=== PATIENT | female | born 1950 | race Caucasian/White ===

== ENCOUNTER 2024-05-18 10:41 | Observation (INO) ==
--- NOTE | 2024-04-07 15:59 | PAT Medication Instructions ---
Medication Instructions Date of Service April 07, 2024 Home Medications gabapentin 300 mg capsule 300 mg PO BID hydrochlorothiazide 12.5 mg capsule 12.5 mg PO QAM lisinopril 40 mg tablet 40 mg PO QAM amitriptyline 25 mg tablet 25 mg PO HS cholecalciferol (vitamin D3) 25 mcg (1,000 unit) capsule (Vitamin D3) 25 mcg PO DAILY glucosamine-chondroitin 250 mg-200 mg tablet (Osteo Bi-Flex) 1 tab PO DAILY meloxicam 7.5 mg tablet 7.5 mg PO BID omeprazole 20 mg capsule,delayed release 20 mg PO QAM rosuvastatin 40 mg tablet 40 mg PO HS vitamin E 2 cap PO DAILY ASK your surgeon for instructions meloxicam 7.5 mg tablet 7.5 mg PO BID STOP taking 2 weeks before surgery (or as soon as possible if surgery is within 2 weeks) glucosamine-chondroitin 250 mg-200 mg tablet (Osteo Bi-Flex) 1 tab PO DAILY vitamin E 2 cap PO DAILY DO NOT take the morning of surgery hydrochlorothiazide 12.5 mg capsule 12.5 mg PO QAM lisinopril 40 mg tablet 40 mg PO QAM cholecalciferol (vitamin D3) 25 mcg (1,000 unit) capsule (Vitamin D3) 25 mcg PO DAILY Take morning of surgery With a small sip of water, OTHERWISE NOTHING TO EAT OR DRINK AFTER MIDNIGHT: gabapentin 300 mg capsule 300 mg PO BID omeprazole 20 mg capsule,delayed release 20 mg PO QAM Take evening before surgery gabapentin 300 mg capsule 300 mg PO BID amitriptyline 25 mg tablet 25 mg PO HS rosuvastatin 40 mg tablet 40 mg PO HS Other Notes If you have any questions please call us at [phone] or [phone] or [phone] or [phone]
--- NOTE | 2024-04-17 09:26 | Anesthesiology Consultation ---
Date of Service April 17, 2024 Assessment & Plan (1) Encounter for pre-operative examination: Plan - awaiting surgeon ordered medical clearance, [facility] 04/24/24. Chart Review Chart Review: Pending: Refer to Additional Notes / Consult section and Patient seen in Pre Admission Testing Teaching & Discussion Pre-Anesthesia Teaching/Discussion Notes: Instructed NPO after midnight before surgery, except medications with 15 cc of water. Medication instructions provided according to the PAT guidelines. History Surgery Operation Date: 05/18/24 10:05 Proposed Procedures p Right Reverse Total Shoulder Arthroplasty, Biceps Tenodesis - Sp Hodges MD Height/Weight Height: 5 ft 2 in Weight: 93.7 kg Allergies Allergy/AdvReac Type Severity Reaction Status Date / Time cephalexin Allergy Intermediate Rash, Hives Verified 04/07/24 11:14 erythromycin base Allergy Intermediate Rash, Hives Verified 04/07/24 11:14 Penicillins Allergy Intermediate Rash, Hives Verified 04/07/24 11:14 Medications Home Medications Medication Instructions Recorded Confirmed Last Taken gabapentin 300 mg capsule 300 mg PO BID 06/29/19 04/07/24 Unknown hydrochlorothiazide 12.5 mg capsule 12.5 mg PO QAM 06/29/19 04/07/24 06/29/19 12.5 lisinopril 40 mg tablet 40 mg PO QAM 06/29/19 04/07/24 06/29/19 amitriptyline 25 mg tablet 25 mg PO HS 04/07/24 04/07/24 Unknown cholecalciferol (vitamin D3) 25 25 mcg PO DAILY 04/07/24 04/07/24 Unknown mcg (1,000 unit) capsule (Vitamin D3) glucosamine-chondroitin 250 mg-200 1 tab PO DAILY 04/07/24 04/07/24 Unknown mg tablet (Osteo Bi-Flex) meloxicam 7.5 mg tablet 7.5 mg PO BID 04/07/24 04/07/24 Unknown omeprazole 20 mg capsule,delayed 20 mg PO QAM 04/07/24 04/07/24 Unknown release rosuvastatin 40 mg tablet 40 mg PO HS 04/07/24 04/07/24 Unknown vitamin E 2 cap PO DAILY 04/07/24 04/07/24 Unknown Past Medical History Medical History (Updated 04/17/24 @ 09:39 by Brittany Stanley PA-C) Heart burn controlled, stable per pt History of kidney stones last episode 8-9 yrs ago HTN (hypertension) controlled, stable per pt Osteoarthritis PONV (postoperative nausea and vomiting) does well with IV pre-dosing Patient denies h/o stroke, seizures, heart attack, heart failure, DM, blood clots/DVTs or blood transfusions. Exercise / Class Metabolic Activity II 4-5 Yardwork/Stairs/Walk up hill (denies chest discomfort or shortness of breath with one flight of stairs) Past Family History Family History Father Myocardial infarction Arthritis Mother Arthritis Past Surgical History Surgical History (Updated 04/17/24 @ 09:40 by Brittany Stanley PA-C) H/O: hysterectomy History of lumbar surgery x2 Srinivas/Rachel; 06/30/1920 Grade 2 view, [place] 2. History of sacrocolpopexy (~2016) [place] History of tonsillectomy Hx of appendectomy Hx of colonoscopy Hx of lithotripsy Past Anesthesia History No Hx of Anesthesia Complications and No Family Hx of Anesthesia Complications History of PONV No Hx of Motion Sickness and History of PONV (denies needing scop patch) Social History Smoking Status: Never smoker Do You Dip or Chew Tobacco: No Hx Alcohol Use: No Hx Substance Use: No substance use type: does not use Review of Systems Patient denies chest pain, shortness of breath, dyspnea on exertion, snoring, witnessed apneas, fever, chills, cough, wheezing, or palpitations. Physical Exam Vital Signs Vitals BP 141/89 P 78 TEMP 97.7 SP02 96% on RA RESP 18 Physical Patient resting comfortably in chair in no acute distress, alert and oriented, responding appropriately throughout visit Full cervical extension range of motion without pain TMD 3.5 finger breadths Mallampati Score 2 Dentition: intact, denies chipped or loose teeth, caps/crowns, implants or bridges Lungs: normal respiratory effort. Good air movement, clear throughout to auscultation, no adventitious breath sounds Cardiac: regular rate and rhythm, no murmurs noted Carotid arteries: negative bruit bilat Lab Results Anesthesia Preop Results Results Anesthesia Widget: WBC 5.24 K/ul (4.8-10.8) 04/17/24 Hgb 13.6 g/dl (12.0-16.0) 04/17/24 Hct 41.8 % (37.0-47.0) 04/17/24 Plt 190 K/uL (130-400) 04/17/24 Na 139 mmol/L (136-145) 04/17/24 K 4.1 mmol/L (3.5-5.1) 04/17/24 Cl 105 mmol/L (98-107) 04/17/24 CO2 31 mmol/L (21-32) 04/17/24 BUN 26 mg/dl (6-23) H 04/17/24 Creat 0.81 mg/dl (0.6-1.2) 04/17/24 Glucose Level 92 mg/dl (70-99(Fasting)) 04/17/24 PT 10.9 Seconds (9.0-12.0) 04/17/24 PTT 24 Seconds (21-31) 04/17/24 INR 1.0 (0.9-1.1) 04/17/24 Blood Type AB Positive 04/17/24 Antibody Screen NEGATIVE 04/17/24 Testing Electrocardiogram Date: 04/17/24 NSR, rate 66 bpm Chest X-Ray Date: 04/17/24 No significant abnormality detected.
[~2024-05-18 10:41] MED LIST: ALLERGY Noted to ORDERED Medication SCH; BUPIVACAINE 0.5 % 5 MG/1 ML PF 10ML VIAL ONE
[2024-05-18] MEDS: LR 15ML/HR IV SCH (11:35)
[2024-05-18] MEDS: LR 60ML/HR IV SCH (11:35)
[2024-05-18] MEDS: ACETAMINOPHEN 500 MG TAB PO SCH ×2 (11:37→21:30)
[2024-05-18] MEDS ORDERED: ROCURONIUM BROMIDE 10 MG/ML 5 ML VIAL IV ONE (13:21)
[2024-05-18] MEDS ORDERED: PROPOFOL IV EMULSION 10 MG/ML 20 ML VIAL IV ONE (13:21)
[2024-05-18] MEDS ORDERED: LIDOCAINE 2% 2 ML VIAL/AMP(20MG/ML) INFIL ONE (13:21)
[2024-05-18] MEDS ORDERED: MIDAZOLAM HCL 1 MG/ML 2ML VIAL ONE (13:22)
[2024-05-18] MEDS ORDERED: fentaNYL citrate PF 100 MCG/2 ML VIAL ONE ×2 (13:22→16:18)
[2024-05-18] MEDS ORDERED: ONDANSETRON INJ 2 MG/ML 2 ML VIAL ONE (13:27)
--- NOTE | 2024-05-18 13:38 | History & Physical Report ---
Date of Service May 18, 2024 Assessment & Plan (1) Osteoarthritis, shoulder: (2) Biceps tendinitis of right shoulder: Plan The plan for the surgery, inpatient stay, required rehabilitation, and informed consent were all reviewed with the patient and her today in the [facility] holding area. She wants to proceed. Informed consent was reviewed and confirmed to proceed with RIGHT REVERSE SHOULDER ARTHROPLASTY, BICEPS TENODESIS History of Present Illness Chief Complaint: Right shoulder pain Primary Care Provider: Ba Pan PA-C 73-year-old female in reasonably good health presents today with no change in her health history and a desire to proceed with the plan that we developed on March 24, 2024 to replace her right shoulder. Allergies Allergy/AdvReac Type Severity Reaction Status Date / Time cephalexin Allergy Intermediate Rash, Hives Verified 05/18/24 11:14 erythromycin base Allergy Intermediate Rash, Hives Verified 05/18/24 11:14 Penicillins Allergy Intermediate Rash, Hives Verified 05/18/24 11:14 Home Medications Medication Instructions Recorded Confirmed Type gabapentin 300 mg capsule 300 mg PO BID 06/29/19 05/18/24 History hydrochlorothiazide 12.5 mg capsule 12.5 mg PO QAM 06/29/19 05/18/24 History lisinopril 40 mg tablet 40 mg PO QAM 06/29/19 05/18/24 History amitriptyline 25 mg tablet 25 mg PO HS 04/07/24 05/18/24 History cholecalciferol (vitamin D3) 25 25 mcg PO DAILY 04/07/24 05/18/24 History mcg (1,000 unit) capsule (Vitamin D3) glucosamine-chondroitin 250 mg-200 1 tab PO DAILY 04/07/24 05/18/24 History mg tablet (Osteo Bi-Flex) meloxicam 7.5 mg tablet 7.5 mg PO BID 04/07/24 05/18/24 History omeprazole 20 mg capsule,delayed 20 mg PO QAM 04/07/24 05/18/24 History release rosuvastatin 40 mg tablet 40 mg PO HS 04/07/24 05/18/24 History vitamin E 2 cap PO DAILY 04/07/24 05/18/24 History Past Med/Surg History Problem List (Updated 05/18/24 @ 13:37 by Sp Hodges MD) Biceps tendinitis of right shoulder Osteoarthritis, shoulder Decreased right shoulder range of motion Encounter for pre-operative examination Lumbar disc herniation with radiculopathy Low back pain Medical History PONV (postoperative nausea and vomiting) does well with IV pre-dosing History of kidney stones last episode 8-9 yrs ago Heart burn controlled, stable per pt HTN (hypertension) controlled, stable per pt Osteoarthritis Surgical History Hx of lithotripsy History of sacrocolpopexy (~2017) [place] Hx of appendectomy Hx of colonoscopy History of lumbar surgery x2 Srinivas/Rachel; 06/30/1920 Grade 2 view, [place] 2. H/O: hysterectomy History of tonsillectomy Family History Father Myocardial infarction Arthritis Mother Arthritis Social History Smoking Status: Never smoker Second Hand Exposure: No; Do You Dip or Chew Tobacco: No; Tobacco Cessation Education Requested by Patient: No Hx Alcohol Use: No Hx Substance Use: No Preferred Language: Greek Communication Ability: Effective [employer] Required: No Beliefs That Will Affect Care: None marital status: Current Living Situation: Spouse Other Information That Helps Us Care for You: No Feels Safe at Home: Yes Safety Concerns: Feels Safe At This Time Assistive Devices: Glasses Review of Systems All systems reviewed & are unremarkable except as noted in HPI & below. Physical Exam Right shoulder: No change to the exam. No skin compromise. DNVI Constitutional WD/WN, vitals as above no acute distress and not intoxicated appearing Respiratory normal respiratory effort; no labored breathing Cardiovascular Extremities: normal capillary refill Results & Data Results & Data Laboratory Results . Diagnostic Findings . PG Care Time/CCT Total # of Minutes Spent Total Time Spent with Patient: Total time spent is greater than 50% in coordination of care (as documented) at patient's floor/unit and/or counseling patient: Coding Level of Care Code None Diagnoses Primary osteoarthritis of right shoulder M19.011 Osteoarthritis type: primary Laterality: right Biceps tendinitis of right shoulder M75.21 (1) Osteoarthritis, shoulder Osteoarthritis type: primary Laterality: right Qualified Code(s): M19.011 - Primary osteoarthritis, right shoulder
[2024-05-18] MEDS ORDERED: Nursing to Pharmacy Communication SCH (13:45)
[2024-05-18] MEDS: TRANEXAMIC ACID / 0.7% NACL 1,000 MG/100 ML BAG IV ONE (13:55)
[2024-05-18] MEDS: ceFAZolin 2000MG 2,000 MG/15 ML SYR IV SCH ×2 (14:30→22:22)
[2024-05-18] MEDS ORDERED: PHENYLEPHRINE 100MCG/ML 5ML SYR ONE (15:37)
[2024-05-18] MEDS ORDERED: ePHEDrine sulfate 50 MG/ML AMP ONE (15:37)
[2024-05-18] MEDS ORDERED: PHENYLEPHRINE HCL 10 MG/ML VIAL ONE (15:45)
[2024-05-18] MEDS ORDERED: GLYCOPYRROLATE 0.2 MG/ML VIAL ONE (16:37)
[2024-05-18] MEDS ORDERED: NEOSTIGMINE METHYLSULFATE 1 MG/ML 10ML VIAL ONE (16:37)
[2024-05-18] MEDS: BUPIVACAINE LIPOSOME 1.3% 133 MG/10 ML VIAL ONE (16:54)
[2024-05-18] MEDS ORDERED: NALOXONE HCL 0.4 MG/1 ML VIAL/CARP IV PRN (16:59)
[2024-05-18] MEDS ORDERED: HYDROmorphone INJ 0.5 MG/0.5 ML SYR IV PRN (16:59)
[2024-05-18] MEDS ORDERED: HYDROmorphone INJ 1 MG/ML SYRINGE IV PRN (16:59)
[2024-05-18] MEDS ORDERED: diphenhydrAMINE 50 MG/ML VIAL IV PRN (16:59)
[2024-05-18] MEDS ORDERED: MAGNESIUM HYDROXIDE SUSP 30 ML UDC PO PRN (16:59)
[2024-05-18] MEDS ORDERED: bisacodyL 10 MG SUPP PR PRN (16:59)
[2024-05-18] MEDS ORDERED: oxyCODONE HCL IR 5 MG TAB (IMMEDIATE RELEASE) PO PRN (16:59)
--- NOTE | 2024-05-18 17:06 | Operative Report ---
PG Post Operative Report Pre & Post Diagnosis Operation Date: 05/18/24 12:50 Pre-Op Diagnosis: Right Shoulder Osteoarthritis Post-Op Diagnosis: Right Shoulder Osteoarthritis I identified the patient and participated in the time-out.: Yes Procedure Operation Date: 05/18/24 12:50 Actual Procedures p Right Reverse Total Shoulder Arthroplasty, Biceps Tenodesis(Right) - Sp Hodges MD Surgeon Sp Hodges MD Tool Crib Supervisor Ena Ram PA-C Estimated Blood Loss 150 Findings See Below Arthrex Univers Reverse Shoulder Arthroplasty was performed: Iron Stemsize 11, humeral insert small 36+6, 36 mm neutral suture cup, 36+6 spacer, 24 mm 20 degree full standard augment baseplate, 20 mm modular post, 36+4/24 modular glenoid system glenosphere, Univers peripheral locking screw 5.5 mm x 20 and 32 and 24 mm EXAMINATION UNDER ANESTHESIA: Preoperative exam under anesthesia revealed the followin degrees of forward flexion, 30 degrees external rotation at the side, 90 degrees of abduction, 30 degrees of external rotation and 10 degrees of internal rotation with the arm abducted. Postoperatively, range of motion parameters after implantation of prosthesis revealed a stable prosthesis with range of motion parameters as follows: 130 of forward flexion, 60 of external rotation at the side, 120 of abduction, 90 of external rotation with the arm abducted, 30 of internal rotation with the arm abducted. The patient's safe range of motion included the ability to get to the back of the head. Internal rotation to the belly without significant tension. Specimens humeral head to pathology by routine Anesthesia Type General Regional Complications none Disposition Accompanied Patient To Recovery: Yes Disposition: Recovery Room Indications 73-year-old female presented with progressive left shoulder pain and stiffness due to osteoarthritis and rotator cuff arthropathy, with concomitant bicipital tendinitis. Physical exam and advanced imaging were consistent with advanced arthrosis of the glenohumeral joint with compromise of the rotator cuff function. Given the glenoid anatomy and rotator cuff dysfunction, I did offer reverse shoulder arthroplasty with biceps tenodesis to address the symptoms. We reviewed the risk, benefits, and alternatives of this intervention in detail, as outlined in the clinical notes. Informed consent was documented in clinic, as t he patient desired to proceed. Description of Procedure The patient was identified in the preoperative holding area. The operative extremity was marked. Regional block was administered by Anesthesia. The patient was then brought to the operating room and placed supine. Preliminary time-out procedure was performed. All were in agreement. General endotracheal anesthesia was induced without any issues. The patient was sat up in around 40-45 degrees of inclination in the beachchair position. Exam under anesthesia was performed confirming the above findings. Preoperative antibiotics were administered without reaction. TXA was infused. Sequential compressive devices were placed on her bilateral lower extremities for DVT prophylaxis. Bony prominences were inspected, well-padded and free of any evidence for peripheral nerve compression. The entire operative upper extremity was then prepped and draped in a normal sterile fashion for shoulder surgery, with use of padded Andrews to hold the arm. Prior to incision, a second time-out procedure was performed confirming the patient, site, laterality and the procedure. All were in agreement. 1. Right shoulder open reverse total shoulder replacement with Arthrex Univers Revers system: A deltopectoral incision was utilized. Incision was carried out sharply and with electrocautery through the skin and subcutaneous tissues. The deltopectoral interval was developed. The cephalic vein was taken laterally. Subdeltoid space was developed bluntly. A deltoid brown retractor was placed to retract the deltoid laterally and superiorly. 1 cm of the superior border of the pectoralis major tendon insertion site was released in standard fashion to improve exposure. Clavipectoral fascia was removed with electrocautery. Extensive subacromial bursitis was encountered and this was completely removed with a Bovie. The lateral aspect of the conjoined tendon was then followed to its insertion site on the coracoid. The conjoined tendon was retracted medially. The biceps tendon was identified, enlarged consistent with tendinopathy and partial rupture. The bicep tendon was followed with the Bovie proximally along its tract to the superior labrum. It was freed from the biceps groove. A tenodesis was performed to the pectoralis major tendon as will be discussed in further detail below. A sharp Hohmann retractor was then placed into the interval and into the joint. Subscapularis tendon was still present and attached on the lesser tuberosity. The articular surface of the humeral head could be appreciated. The capsule with the subscapularis tendon was then released up the inferior humeral neck as one layer. The humeral head dislocated with successive extension and external rotation. Visualization of the humeral head revealed significant osteoarthritis and wear. Rotator cuff had a high-grade tear involving most of the supraspinatus and back into the infraspinatus. There was a large inferior humeral head osteophyte that was taken down with a large rongeur. I could palpate a separate, large loose body in the axillary pouch. The top of the humeral head was identified. A starting pin was used sound the humeral canal. The bone quality was moderate. Opening reamers were used to define the canal. The 6 mm reamer allowed alignment with the canal. The cutting guide was then placed on the reamer handle in the usual fashion. Humeral head appeared to be in 35-40 degrees of retroversion. The cutting guide was fixed with a breakaway pins. Sagittal saw was then used to create the humeral head cut. Blunt Hohmann was used posteriorly to ensure safety with a saw. The cut was evaluated. It did not violate the the remaining rotator cuff appeared to be sufficient through the neck. There was cavitary bone loss within the substance of the humeral head. A protective cover was placed over the medullary bone. We then proceeded over to glenoid. An anterior glenoid neck retractor was placed. The MGHL and SGHL were released off of the muscular portion of the subscapularis being mindful of palpating and identifying the axillary nerve to make sure it was free of injury during releases. Next, the interval between the IGHL and the muscular portions of the subscapularis was identified. My finger was on the axillary nerve to protect it during releases. The IGHL was then released up to around the 7 o'clock position. A blunt retractor was then placed to retract the humerus posteriorly. A sharp Hohmann retractor was placed at the 12 o'clock position. At this point the loose body was able to be seen in the inferior axillary recess. It was removed in 1 piece with a Rachel. The glenoid deformity was evaluated. Extraneous capsulolabral tissue was dissected to reveal the bone anatomy. This confirmed our decision to proceed with preoperative virtual planning. The arm was placed around 30 degrees of flexion, 90 degrees of external rotation and 30 degrees of abduction to distract the humerus posteriorly. Labrum was circumferentially removed including the biceps tendon stump with a Bovie. Arthrex virtual implant positioning guide set to the preplanned parameters was used to place an initial guide pin. The augment template was then placed. It seemed that we are in the appropriate position with our central pin and the augment would fit well. The patient specific guide was then removed. The short starting reamer was used over the pin. The full augment oblique reamer was then used over the pin after drilling the starting position. The depth was judged based on the preoperative plan. Once cartilage debrided from the subchondral bone the preparation was evaluated. We then reamed to the depth matching the preoperative plan. Copious irrigation was performed to irrigate out the joint. The augment template was then dropped over the pin. There was good fill and fit and implant match. The planned glenoid baseplate and central post were then placed. The implant was firmly tamped down with good capture of the central post. We then drilled the superior compression screw position with the trajectory that was planned on the VIP program. There was only moderate purchase. The remaining locking positions were on the glenoid baseplate were then drilled, measured, and placed with firm purchase according to the virtual plan. The anterior screw seemed to break out through the very thin anterior rim of the glenoid. This screw was removed. The posterior screw was upsized to a 20. Because of this violation, I replaced the nonlocking superior screw with a locking screw the same trajectory at the same length. The final construct appeared to be extremely strong as the entire glenoid and scapula moved together as one unit confirming excellent fixation of the baseplate. The peripheral retail merchandising specialist was then used to clear out soft tissue and osteophytes that would impinge on the backside of the glenosphere. Next, the planned glenosphere was confirmed and opened on the back table. The glenosphere was then seated into the baseplate and impacted onto the carrizales taper. A geiger was used to test fixation, before resetting with additional malleting. The central fixation screw was then placed. The joint was then copiously irrigated. Humerus was then brought back into view with external rotation, deltoid brown retractor and multiple blunt Homans. Successive trial broaches were then broached up to a size 10, which gave us excellent press-fit. The trial stem was left in place. The cup reamer was used over the post. This area was irrigated. The trial stem had excellent purchase and capture the humerus so we plan for the same size. The final stem prosthesis was then brought onto the field after locking the suture cup. The final humeral component with the tray were made on the back table, matching the trial implant. Humeral canal was copiously irrigated. The final humeral component was then brought back on to the field and seated firmly into the humerus. Excellent press-fit was achieved. Standard +3 liner was then dropped into the suture cup. The humerus was then reduced onto the glenoid with the arm in abduction and external rotation. The arm was taken out of the sim, taken through a physiologic range of motion. There appeared to be excessive laxity and I can easily dislocate. Successive upsizing was continued until we achieved better stability. We ended up with a +6 insert and +6 liner. The arm was taken through another physiologic range of motion. No evidence for impingement. No evidence for kick off. Appropriate shuck. Thus, the trials would be a most appropriate for stability. The joint was dislocated once again. The trial tray and insert were removed. The suture cup was thoroughly irrigated. The final tray implant was selected and implanted with a titanium screw. The polyethylene liner was then clipped into place. Impactor and mallet were used for final fixation. With the final components in place, humeral component was then reduced onto the glenosphere and final postoperative range of motion assessment was performed. Stability confirmed. This completed the open reverse total shoulder replacement. 2. Open biceps tenodesis: As dictated above, enlargement of the biceps tendon was noted consistent with tendinopathy and high-grade partial tear. The tenodesis was necessary to keep appropriate tension relationship with the long head bicep. The tendon was released from the bicipital sheath using a Bovie and then tenodesed to the pectoralis major tendon using a #2 FiberWire suture in [id number] fashion. The tendon was then followed up as proximal as could be visualized and then tenotomized. Remaining stump was removed just proximal to the tenodesis site. This completed the open biceps tenodesis. The routine closing sequence was begun. Thorough pulse lavage irrigation was performed. Next, a 2-minute iodine solution soak was performed. The arm is held at 90 degrees of abduction and neutral rotation to allow the solution to lay in the wound. Gentle lavage using iodine solution was performed for 2 minut es. Pulse positive then used to thoroughly irrigate out the iodine solution. A total of 3 L normal saline was used. The wound was copiously irrigated. The deltopectoral incision was closed with #0 Vicryl suture. Subcutaneous tissues were closed with 2-0 Vicryl suture in buried interrupted fashion and skin closed with jose c. The wound was dressed with xeroform, gauze, and ABDs, contained by July. The patient was placed in a standard sling and turned over to the anesthesia team. The patient tolerated procedure well, was extubated in the operating room without complication, and transferred to the PACU in stable condition. DISPOSITION: The patient will remain in sling for a total of 4 weeks. She was admitted for observation based on preanesthetic testing recommendations. Routine postoperative oral antibiotic prophylaxis will be prescribed at discharge. Hand, wrist, and elbow range of motion exercises may be initiated. Formal therapy will be initiated starting with gentle active assisted range of motion. No strengthening will be permitted before 12 weeks. Physician therapy assistant attestation: Ena Ram PA-C was present and scrubbed for the duration of the case. Skilled assistance was essential to prepping/draping, patient positioning, retraction, and wound closure. I attest to the content of the Intraoperative Record and any orders documented therein. Any exceptions are noted below.
--- NOTE | 2024-05-18 17:38 | Anesthesiology Progress Note ---
Date of Service May 18, 2024 Anesthesia Post Procedure Vital Signs Vital Signs: Temp Pulse Pulse Resp BP BP Pulse Ox 05/18/24 17:25 82 21 160/100 H 96 05/18/24 17:15 87 19 159/103 H 97 05/18/24 17:05 79 13 156/93 H 95 05/18/24 16:59 36.1 C L 96 H 23 158/103 H 96 05/18/24 11:17 36.6 C 93 H 20 158/103 H 99 O2 Del Method O2 Flow Rate 05/18/24 17:25 Oxymask 5 05/18/24 17:15 Oxymask 5 05/18/24 17:05 Oxymask 5 05/18/24 16:59 Oxymask 5 05/18/24 11:17 Room Air Pain Intensity Right Shoulder: Pain Intensity: 6 Transfer of Care Handoff Completed per policy Notes Mental Status: alert / awake / arousable and participated in evaluation Patient Amnestic to Procedure: Yes Nausea / Vomiting: adequately controlled Pain: adequately controlled Airway Patency, RR, SpO2: stable & adequate BP & HR: stable & adequate Hydration State: stable & adequate Anesthetic Complications: no major complications apparent
--- NOTE | 2024-05-18 17:56 | XRay Report ---
EXAM: Radiographs of the Right Shoulder Complete 2 Views INDICATION: TECHNIQUE: 2 views of the right shoulder. COMPARISON: No relevant prior studies available. FINDINGS: Bones/joints: Shoulder arthroplasty components well-seated and intact. No fracture or dislocation. Soft tissues: Expected postoperative swelling and gas. IMPRESSION: Satisfactory appearance of right shoulder arthroplasty. ACT 112: Negative or not required by law. Electronically signed by Manda Denis 05-18-2024 5:55 PM
[2024-05-18] MEDS: ONDANSETRON INJ 2 MG/ML 2 ML VIAL IV PRN (18:16)
[2024-05-18] MEDS: METOCLOPRAMIDE HCL INJ 5 MG/ML 2 ML VIAL IV PRN (20:05)
[2024-05-18] MEDS: DOCUSATE SODIUM 100 MG CAP PO SCH (21:27)
[2024-05-18] MEDS: SENNA 8.6 MG TAB PO SCH (21:27)
[2024-05-18] MEDS: MELOXICAM 7.5 MG TAB PO SCH (21:28)
[2024-05-18] MEDS: ROSUVASTATIN CALCIUM 20 MG TAB PO SCH (21:28)
[2024-05-18] MEDS: AMITRIPTYLINE HCL 25 MG TAB PO SCH (21:28)
[2024-05-18] MEDS: GABAPENTIN 300 MG CAP PO SCH (21:28)
[2024-05-19 03:09] VITALS: O2SAT 94
[2024-05-19 07:57] VITALS: RESP 15; TEMP 98.2
[2024-05-19] MEDS: PANTOprazole 40 MG TAB PO SCH (08:14)
[2024-05-19] MEDS: lisinopril 40 MG TAB PO SCH (08:14)
[2024-05-19] MEDS: MULTIVITAMIN TAB PO SCH (08:14)
[2024-05-19] MEDS: hydroCHLOROthiazide 25 MG TAB PO SCH (08:14)
[2024-05-19] MEDS: CHOLECALCIFEROL 25 MCG (1000 UNITS) TAB PO SCH (08:14)
[2024-05-19] MEDS ORDERED: VITAMIN E PO SCH (09:00)
[2024-05-19] MEDS ORDERED: NON-FORMULARY MEDICATION (Glucosamine-Chondroitin [Osteo Bi-Flex] 250-200 mg Tablet) PO SCH (09:00)
--- NOTE | 2024-05-19 09:33 | Orthopedic Progress Note ---
Date of Service May 19, 2024 Assessment & Plan (1) Status post reverse total arthroplasty of right shoulder: Operation Date: 05/18/24 12:50 Actual Procedures p Right Reverse Total Shoulder Arthroplasty, Biceps Tenodesis(Right) - Sp Hodges MD -Postop day 1 right reverse total shoulder arthroplasty was obtained nieces -Dressing can be removed on postop day 3. Jose C remain in place. Cover only if the jose c are bothering her or if there is drainage. Hygiene is normal at this point -She has a postop appointment on 06/01/[address] Hodges -Work with PT/OT prior to discharge -Discharge today. Subjective Operation Date: 05/18/24 12:50 Actual Procedures p Right Reverse Total Shoulder Arthroplasty, Biceps Tenodesis(Right) - Sp Hodges MD Patient is postop day 1 from a right reverse total shoulder arthroplasty and open biceps tenodesis by Dr. Hodges. Patient states she is doing well. I was with her today when the nursing staff was doing their bed past. Her pain is controlled at this time. Nursing staff states that she is pleasant and doing well. She would like to be discharged today if possible. Review of Systems All systems reviewed & are unremarkable except as noted in HPI & below. Physical Exam General: Alert and oriented. No acute distress. Right shoulder: Dressing check satisfactory. No saturation. Dressing is dry and intact. Her sling is fitting her properly. She is neurovascularly intact in the right upper extremity. No sensation deficits along the lateral upper arm. Results & Data Results & Data Laboratory Results . Diagnostic Findings . PG Care Time/CCT Total # of Minutes Spent Total Time Spent with Patient: Total time spent is greater than 50% in coordination of care (as documented) at patient's floor/unit and/or counseling patient: Coding Level of Care Code 27862 Post Operative Follow-Up Diagnoses Status post reverse total arthroplasty of right shoulder Z96.611
--- NOTE | 2024-05-19 09:38 | Discharge Summary ---
Date of Service May 19, 2024 Admission HPI (Per Admitting) 73-year-old female in reasonably good health presents today with no change in her health history and a desire to proceed with the plan that we developed on March 24, 2024 to replace her right shoulder. Admission Exam (Per Admitting) Right shoulder: No change to the exam. No skin compromise. DNVI Principal Diagnosis Same as "Discharge Diagnosis" noted below under Discharge Instructions. Discharge Exam General: Alert and oriented. No acute distress. Right shoulder: Dressing check satisfactory. No saturation. Dressing is dry and intact. Her sling is fitting her properly. She is neurovascularly intact in the right upper extremity. No sensation deficits along the lateral upper arm. Discharge Data Procedures Performed Operation Date: 05/18/24 12:50 Actual Procedures p Right Reverse Total Shoulder Arthroplasty, Biceps Tenodesis(Right) - Sp Hodges MD Ordered Studies 05/18/24 05:00 US - OR guided needle placemen Routine Hospital Course (1) Status post reverse total arthroplasty of right shoulder: Operation Date: 05/18/24 12:50 Actual Procedures p Right Reverse Total Shoulder Arthroplasty, Biceps Tenodesis(Right) - Sp Hodges MD -Postop day 1 right reverse total shoulder arthroplasty was obtained nieces -Dressing can be removed on postop day 3. [place] remain in place. Cover only if the shmuel are bothering her or if there is drainage. Hygiene is normal at this point -She has a postop appointment on 06/01/[address] Hodges -Work with PT/OT prior to discharge -Discharge today. PG Care Time/CCT Total # of Minutes Spent Total Time Spent with Patient: Total time spent is greater than 50% in coordination of care (as documented) at patient's floor/unit and/or counseling patient: Discharge Plan Discharge Items Patient Disposition: Home - Self-Care Reason For Visit: Right Shoulder Osteoarthritis Discharge Diagnosis: s/p right reverse total shoulder arthroplasty Activity: Per Instructions section Non-emergency contact: Surgeon Call non-emergency contact if: your pain is not controlled, your temperature is above 101.5 and your wound has increased drainage Follow-up/Referrals: Ba Pan PA-C [Primary Care Provider] - Diet: Regular Addtl Attending Provider Instructions: Sp Hodges M.D. [facility] [address] [id number] Dressing Care: Leave the dressing in place for 3 days. After 3 days you may remove the dressing. If the incision is not draining, you do not have to re-cover the dressing. Shmuel will be removed at your postop appointment. If there is a little bit of drainage or if the wound is bothersome with your clothing, cover the incision with a dry dressing. Do not use any ointments or topical medications unless directed by your surgeon. Do not submerse the incisions in water no pools, oceans, lakes, jacuzzis, bathtubs, etc for at least 3 weeks. Showering: After 3 days you may remove the dressing and shower normally. Allow soap and water to run over the incision and pat dry. Do not scrub or soak the incision. Activity and Therapy Recommendations: - If you are not using home therapy then Outpatient Physical Therapy should start about 3-5 days from your day of surgery. Therapy will last about 8-12 weeks - Wear your sling for 3 weeks, unless otherwise instructed. You may remove your sling to shower and to dress, but otherwise, you should be in your sling at all times, including while sleeping - The shoulder replacement is very stable and you can use your hand while in the sling - You were shown a series of exercises in the hospital. Do these exercises daily including the exercises you were shown in physical therapy. - NO EXTERNAL ROTATION - do not reach out to your side. Pain Control: Use frequent ice to reduce amount of pain medications. Use for 30 minutes per hour. Do not leave in place longer than 30 minutes, especially when your block is in effect, to prevent frostbite or thermal injury. Medications: - Opioid: You will likely be sent home with a prescription for the opioid pain medication. Use as directed, as needed. - Other medications may be prescribed for specific circumstances. If you have any questions, please call the office at . - Resume previous home medications unless otherwise instructed Follow-Up: 1. Ortho Clinic with Dr. Hodges: You should be seen in 10-14 days. Please call immediately to schedule if you do not have an appointment. Pending Studies at Discharge: No Stand-Alone Forms: My [facility], Smoking Cessation Medications and DC Order Prescriptions: New cefadroxil 500 mg capsule 500 mg PO BID 10 Days Qty: 20 0RF ondansetron 4 mg tablet,disintegrating 4 mg PO Q6H PRN (Reason: nausea and vomiting) Qty: 10 0RF oxycodone 5 mg tablet 5 - 10 mg PO Q6H MDD 6 tablets PRN (Reason: post operative pain) Qty: 18 0RF Continued hydrochlorothiazide 12.5 mg Capsule 12.5 mg PO QAM lisinopril 40 mg tablet 40 mg PO QAM gabapentin 300 mg capsule 300 mg PO BID amitriptyline 25 mg tablet 25 mg PO HS omeprazole 20 mg Capsule,Delayed Release(Dr/Ec) 20 mg PO QAM cholecalciferol (vitamin D3) [Vitamin D3] 25 mcg (1,000 unit) Capsule 25 mcg PO DAILY glucosamine-chondroitin [Osteo Bi-Flex] 250-200 mg Tablet 1 tab PO DAILY Rx Instructions: give after food/meal rosuvastatin 40 mg tablet 40 mg PO HS vitamin E 2 cap PO DAILY meloxicam 7.5 mg Tablet 7.5 mg PO BID Discharge Orders: Discharge Order (Routine); Ordered 05/19/24 Ordered By: Ena Ram Admission Data Admit Date/Time: 05/18/24 16:59 Attending Provider: Sp Hodges Admit Provider: Sp Hodges Primary Care Provider: Ba Pan Other Interventions: Discharge Summary Assessment (RN) Last Done: 05/19/24 10:04
[2024-05-19 10:17] VITALS: BP 158/103; PULSE 92
== END 2024-05-19 10:51 | disposition home or self-care (01) ==
LOC: ASU 10:41 → 3E 10:41